=== PATIENT | female | born 1955 | race Caucasian/White ===

== ENCOUNTER → 2016-06-26 | Outpatient (CLI) | payer MEDICARE, OTHER ==
[~2016-06-26] MED LIST: ADVAIR 250/5028 PUFF IN; ADVAIR DISK28 PUFFS IN; ALBUTEROL-200 PUFFS/ IH; ALBUTEROL2.5 MG/NEB IN; ASPIRIN EC325 M1 PO; AVELOX400 MG PO; BAYER ASPIRIN325 MG PO; BIAXIN FILMTAB500 MG PO; CARDIZEM CD180 MG PO; COMBIVENT INH14.7 GM IN; CRESTOR20 MG PO; CYCLOBENZAPRINE10 MG PO; EFFEXOR XR 75MG75 MG PO; EFFEXOR XR150 MG PO; FIORICET1 CAP PO; GABAPENTIN 600600 MG PO; IPRATROPIU0.5 MG/2.5 IN; IPRATROPIUM BROM3 M1 IH; Isosorbide Mono60 MG PO; K-TAB20 MEQ PO; KEPPRA 500 MG500 MG PO; KLOR-CON M2020 MEQ PO; LASIX 40MG. TAB40 MG PO; LASIX40 MG PO; LEVAQUIN500 MG PO; LEVAQUIN750 MG PO; LISINOPRIL10 MG PO; LISINOPRIL2.5 MG PO; MEDROL 4MG. DOSE4 MG PO; METOPROLOL 25 M25 MG PO; METOPROLOL25 MG PO; MIRAPEX0.5 MG OR; MIRAPEX0.5 MG PO; NEURONTIN 300M300 MG OR; NEURONTIN600 M1 PO; NITROLINGU0.4 MG/ACT SL; NYSTATIN SUSPEN60 ML MT; OMEPRAZOLE D/R20 MG PO; PAXIL40 MG PO; PERCOCET 5/3251 EACH PO; PRAMIPEXOLE D0.25 MG PO; PRAMIPEXOLE DI0.5 MG PO; PREDNISONE 20MG20 MG PO; PREDNISONE 5MG.5 MG PO; SEROQUEL 100MG100 MG PO; SEROQUEL300 MG PO; SPIRIVA HA1 PUFF/INH IH; TOPAMAX100 MG PO; VENLAFAXINE150 M1 PO; XANAX 1MG TABLET1 MG PO
--- NOTE | 2016-06-27 05:23 | RADIOLOGY REPORT PS360 ---
CHEST(2 VIEWS-NOT PORTABLE) HISTORY: COPD EXACERBATION ORDERING PHYSICIAN: DOREEN JENKINS APRN PATIENT AGE: 61 years COMPARISON: 03/19/2016. FINDINGS: The cardiomediastinal silhouette and pulmonary vascularity are within normal limits. There is chronic coarsening of the bronchovascular markings suggesting obstructive chronic bronchitis. No lobar consolidation or collapse is evident. No obvious superimposed infiltrate.. No acute bony abnormalities. IMPRESSION: Chronic obstructive bronchitis overall not significantly changed with no acute finding
== END ==
LOC: RAD 13:35
DX: J44.1 Chronic obstructive pulmonary disease with (acute) exacerbation (principal)